=== PATIENT | male | born 1975 | race Caucasian/White ===

== ENCOUNTER → 2023-10-08 13:59 | Outpatient (REF) | payer OTHER, SELFPAY | LOC: HWRAD 13:59 | PROVIDERS: ATTENDING PHYSICIAN Family Medicine | DX: N20.0 Calculus of kidney (principal) | CPT/HCPCS: 74176 ==

== ENCOUNTER → 2023-10-28 09:25 | Outpatient (REF) | payer OTHER, SELFPAY | LOC: HWRAD 09:25 | PROVIDERS: ATTENDING PHYSICIAN Surgery; FAMILY PHYSICIAN Family Medicine | DX: N28.1 Cyst of kidney, acquired (principal) | CPT/HCPCS: 74170; Q9967 ==

== ENCOUNTER 2024-05-06 15:52 | Inpatient (IN) | payer OTHER, SELFPAY ==
[2024-05-06 08:49] VITALS: BP 103/74
[2024-05-06] MEDS: PROTONIX IV 80 MG IV (11:16)
[2024-05-06] MEDS: NSS 1000 IV (11:16)
[2024-05-06 11:32] LABS: % Basophils 0.3 % (0-2); % Eosinophils 1.3 % (0-6); % Immature Granulocytes 0.3 % (0-0.5); % Monocytes 6.5 % (1.7-9.3); % Neutrophils 77.6 % (42.2-75.2); Absolute Eosinophils 0.2 10^3/uL (0-0.7); Absolute Lymphocytes 1.6 10^3/uL (1.2-3.4); Absolute Monocytes 0.8 10^3/uL (0.1-0.6); Hematocrit 40.3 % (39.0-52.0); Hemoglobin 13.7 g/dL (13.0-18.0); Mean Corpuscular Hgb 31.6 pg (27.0-31.0); Mean Corpuscular Volume 92.9 fL (80.0-94.0); Mean Platelet Volume 10.4 fL (7.4-10.4); Nucleated Red Blood Cells % 0 % (-); Platelet Count 165 10^3/uL (130-400); Red Blood Cell Count 4.34 10^6/uL (4.70-6.10); Red Cell Dist. Width 12.5 % (11.5-14.5); White Blood Cell Count 11.6 10^3/uL (4.8-10.8)
[2024-05-06 11:45] LABS: ALT (SGPT) 26 U/L (0-50); AST (SGOT) 23 U/L (17-59); Albumin 4.1 g/dl (3.5-5.0); Alkaline Phosphatase 49 U/L (38-126); Blood Urea Nitrogen 11 mg/dl (9-20); Calcium 9.7 mg/dl (8.4-10.2); Carbon Dioxide 28 mmol/L (22-30); Chloride 103 mmol/L (98-107); Glucose 93 mg/dl (70-99); Potassium 4.2 mmol/L (3.5-5.1); Sodium 136 mmol/L (135-145); Total Bilirubin 0.7 mg/dl (0.2-1.3); Total Protein 7.3 g/dl (6.3-8.2); eGFR > 60.00
[2024-05-06] MEDS: DILAUDID 0.5 MG IV (12:53)
--- NOTE | 2024-05-06 12:58 | ED.GENMED ---
History of Present Illness
General
Chief Complaint: Rectal Bleeding
Source: patient and spouse
Exam Limitations: none
Time Seen by Provider: 05/06/24 10:44
Nursing documentation reviewed up to this point in time: agreed with
History of Present Illness
History of Present Illness:
48-year-old male presenting to the emergency department today with concerns of rectal bleeding described as bright red as well as mixture of dark stool as well over the past 10 days worsening over the past day felt [id number] to his hands and
feet today as well. Has a history of polyps on colonoscopy but denies any significant previous symptoms that were similar. Does not take any blood thinners.
Review of Systems
Review of Systems
Allergies reviewed?: Yes
All Other Systems: ROS reviewed and negative except as documented in HPI and ROS
Phy Exam
Physical Exam
Physical Exam:
GENERAL: Alert , in no apparent distress
EYE: pupils equal and reactive
NECK: Supple, no significant adenopathy.
ENT: o/p clr, mmm.
CARDIAC: Regular rate and rhythm .
LUNGS: Clear breath sounds bilaterally, no acute respiratory distress, no wheezes/rales/rhonchi
ABDOMEN: Left flank pain to palpation otherwise soft benign abdomen. Rectal examination with dark brown to black stool as well as red
NEUROLOGICAL: Alert and oriented, no focal neuro deficits
SKIN: Warm and dry, skin intact.
MUSCULOSKELETAL: No edema, well perfused.
PSYCH: Normal and appropriate interaction.
Course
Orders/Labs/Results
Orders:
Orders
05/06/24 10:54
CT Abd/Pel (IV only)-DH only Urgent
Comment:
Reason For Exam: left flank pain
Pantoprazole [Protonix IV] 80 mg IV NOW STA
05/06/24 10:55
0.9% Sodium Chloride 1000 ml [Nss] 1,000 ml IV BOLUS
05/06/24 11:24
Type+Screen Urgent
Complete Blood Count/With Diff Urgent
Comprehensive Metabolic Panel Urgent
05/06/24 12:29
ABO2 Urgent
BBK Wristband Number:
Associate notified that ABO2 has been ordered: [id number]
Date: 05/06/24
Time: 11:33
Potato Chip Frier ID: [id number]
05/06/24 12:34
HYDROmorphone [Dilaudid] 0.5 mg IV NOW STA
Abnormal Lab Results
05/06/24
11:24
WBC 11.6 H 10^3/uL
(4.8-10.8)
RBC 4.34 L 10^6/uL
(4.70-6.10)
MCH 31.6 H pg
(27.0-31.0)
Absolute Neuts (auto) 9.0 H 10^3/uL
(1.4-6.5)
Absolute Monos (auto) 0.8 H 10^3/uL
(0.1-0.6)
Neutrophils % 77.6 H %
(42.2-75.2)
Lymphocytes % 14.0 L %
(20.5-51.1)
05/06/24 11:24
05/06/24 11:24
Vital Signs
Initial and Last Documented VS:
Initial Vital Signs
Temp Pulse Resp BP Pulse Ox
98.4 F 84 16 /74 98
05/06/24 08:49 05/06/24 08:49 05/06/24 08:49 05/06/24 08:49 05/06/24 08:49
Last Documented Vital Signs
Temp Pulse Resp BP Pulse Ox
98.4 F 84 16 103/74 98
05/06/24 08:49 05/06/24 08:49 05/06/24 08:49 05/06/24 08:49 05/06/24 08:49
MDM/Problems Addressed
MDM/Problems Addressed:
48-year-old male presenting to the emergency department today with concerns of bleeding. Also has discomfort to the left flank area. Vital signs normal on arrival hemoglobin of 13.7. No old numbers CT scan here without emergent findings. Patient
claims have some ongoing bleeding here. Concerning moderate amount described as well as ongoing bleeding plan to admit for monitoring overnight.
*Critical Care Note
Total Time (30-74mins, 75-104mins- exclusive of procedures): Not Applicable
ED Attending Note
-
Portions of this chart may have been created with voice recognition software.� Occasional wrong word or��sound alike� substitutions may have occurred due to the inherent limitations of voice recognition software.
Discharge Plan
Departure
Patient Disposition: Admit
Date of Disposition: 05/06/24
Time of Disposition: 13:58
Admit to: Med/Surg
Admit to doctor: Lizethy
Presentation/result/management discussed w/ accepting MD/DO: Hospitalist
Patient with high blood pressure during this ER visit?: No
Condition: Good
Covid-19: Not Applicable
Discharge Problem:
Acute GI bleeding
Prescriptions:
No Action
ibuprofen [Motrin] 400 mg Tablet
400 mg PO Q6HPRN PRN (Reason: mild pain)
Referrals:
Feliciano Treviño DO [Family Provider] -
Interventions
Interventions:
*Risk Screen - Suicide Last Done: 05/06/24 08:54
*Neglect/Abuse Screening Last Done: 05/06/24 08:54
*ED COVID-19 Vaccine History Last Done: 05/06/24 08:54
EF-Wrujyx-Cqkbschwjo Assessment Last Done: 05/06/24 11:45
ED- Cardiac Assessment Last Done: 05/06/24 11:45
ED- Pulmonary Assessment Last Done: 05/06/24 11:45
Discharge Date and Time
Print Language: UKRAINIAN
--- NOTE | 2024-05-06 14:02 | HPS.HSE ---
Family Physician
-
Family Physician: Feliciano Treviño
Chief Complaint
-
rectal bleeding
History of Present Illness
Patient is a 48-year-old male with past medical history significant for polyps with colonoscopy, and bowel resection x2 who presented to [facility] ED for evaluation of rectal bright red blood today x3. Patient reports first episode of
bright red blood was on 04/25/2024 and since then he has had approximately 3-4 episodes of bright red blood and consistent dark stools. He reports significant history starting in 1994 where he had a appendectomy and ended up with adhesions causing a
bowel perforation. Patient had bowel resection and approximately 1 year after resection he had a second episode of adhesions with bowel perforation requiring a second resection. He denies any issues since. Has followed with GI and last colonoscopy
at [facility] was in 2021 where polyps were removed and recommendations for next colonoscopy to be in 5 years. He associates today's episode with pain the back left flank, does have recent history of kidney stone, patient took ibuprofen for
discomfort at home. Patient denies any dizziness, fever, chills, cough, shortness of breath, chest pain, nausea, vomiting, constipation, diarrhea or urinary symptoms.
Medical History
Past Medical History
Past Medical History: Reports Other
Additional Past Medical History:
colon polyps
Past Surgical History: Reports Other
Additional Past Surgical History:
colonoscopy
appendectomy
bowel resection x2 ([id number])
hernia repair
left knee lateral release
Social History
Tobacco: Former Smoker (quit 2010, has approximately 20 pack year history )
Alcohol: None
Drug: Marijuana (smokes occasionally )
Personal:
Living: With Family
Employment: Employed (self employed )
Family History
Family History: Other (Mother: Crohn's disease, HTN; Father: HTN, CAD, mesothelioma )
Allergies / Home Medications
Allergies reflects when Allergies were last updated in [facility].
Home Medications with original date entered in [facility]
Allergy/Medication List:
Allergies
Allergy/AdvReac Type Severity Reaction Status Date / Time
diphenhydramine AdvReac Mild Nausea Verified 05/06/24 08:52
[From Benadryl]
Home Medications
ibuprofen 400 mg tablet 400 mg PO Q6HPRN PRN mild pain 05/06/24
Review of Systems
-
History Source: Patient
Constitutional: Reports No Symptoms
EENT: Reports No Symptoms
Respiratory: Reports No Symptoms
Cardiac: Reports No Symptoms
Abdomen/GI: Reports Abdominal Pain (left flank, left back pain ), Bloody Stools and Black Stools
: Reports No Symptoms
Musculoskeletal: Reports No Symptoms
Skin: Reports No Symptoms
Neurological: Reports No Symptoms
Endocrine: Reports No Symptoms
Hematologic/Lymphatic: Reports No Symptoms
Psych: Reports No Symptoms
Physical Exam
Vital Signs
Vital Signs
Temp Pulse Resp BP Pulse Ox
98.4 F 84 16 103/74 98
05/06/24 08:49 05/06/24 08:49 05/06/24 08:49 05/06/24 08:49 05/06/24 08:49
Physical Exam
General: Well Developed, Well Nourished, No Apparent Distress, Comfortable and Conversant
HEENT: NormoCephalic, Moist mucous membranes, Atraumatic, [place] Conjunctivae, Nose Appears Normal and Ears Appear Normal
Respiratory: Clear and Non Labored Respirations
Cardiac: S1/S2 and Regular Rhythm; No Murmur, Rub or Gallop
Breast: Deferred by me
GI: Soft, Non Tender, Non Distended and Normal Bowel Sounds; No Organomegaly
Rectal: Hem Positive and Maroon Stools
Genito-urinary: Deferred by me
Musculoskeletal: No Clubbing, No Cyanosis and No Edema
Skin: Warm and IV/Catheter Site; No Rash
Neuro: Awake, Alert, AO x 3 and Nonfocal/grossly intact
Psych: Calm and Intact Judgment/Insight
Laboratory Results
-
05/06/24 11:24
05/06/24 11:24
Laboratory Results
Total Bilirubin 0.7 mg/dl (0.2-1.3) 05/06/24 11:24
AST 23 U/L (17-59) 05/06/24 11:24
ALT 26 U/L (0-50) 05/06/24 11:24
Alkaline Phosphatase 49 U/L (38-126) 05/06/24 11:24
Data Reviewed
-
CT Scan: Report Reviewed by me (Abd/pel: Small simple hepatic cyst as well as four additional subcentimeter low-attenuation hepatic lesions too small to characterize. Small simple bilateral renal cysts. Predominant asymmetric renal excretion. No
findings to suggest obstructive uropathy bilaterally. Limited evaluation of intestin)
Lab Data: Labs Reviewed by me
Impression/Plan
-
IMPRESSION/PLAN:
#GI bleed
Hx bowel resection x2 ([id number])
Hx polyps with colonoscopy (last 2021)
Hgb 13.7/Hct 40.3
Abd/Pelvis CT: Small simple hepatic cyst as well as four additional subcentimeter low-attenuation hepatic lesions too small to characterize.
Small simple bilateral renal cysts. Predominant asymmetric renal excretion. No findings to suggest obstructive uropathy bilaterally.
Limited evaluation of intestinal tract without oral contrast, without intestinal obstruction or free air.
Prior appendectomy.
Blood consent obtained and scanned in chart
- Admit to telemetry
- Consult GI
- monitor H/H
- Protonix IV BID
- IVF (LR @ 75cc/hr)
Code status: full code
DVT prophylaxis: SCDs
--- NOTE | 2024-05-06 15:49 | CON.GI ---
Addendum entered and electronically signed by Thanh Green MD 05/06/24 17:04:
The patient was seen and examined by me independently in collaboration with the nurse practitioner.
Past medical history/social history/medications/allergies/family history reviewed.
Lab data and imaging data reviewed.
48-year-old male past medical history of multiple bowel surgeries from adhesions and perforation after appendectomy presenting with rectal bleeding. Initially had 2 episodes of blood mixed with stool and April 25, additional 1 last week. This
morning he had 3 episodes of blood mixed with clots with no stool which brought him to the ER. He denies abdominal pain, nausea, fever, sick contacts, antibiotics, recent travel. His stools are always on the softer side due to his multiple
surgeries. He is up-to-date with his colonoscopy last being in 2021 and I also reviewed these pictures. In the ER he had a CT scan which was normal except for cysts and his hemoglobin here is 13.7. He does have a family history both of Crohn's
disease and colon cancer.
Likely diverticular vs hemorrhoids.
Trend Hb.
If acute bleed recommend CTA vs nuc med.
Will need cscope inpatient vs oupatient pending clinical status. D/w pt agreeable.
Clears for now.
Original Note:
Consultation
-
Date/Time Consultation Requested: 05/06/24 1500
Date/Time Consultation Performed: 05/06/24 1530
Requesting Provider: FRANCA Arnold
Performing Provider: Dr. Green/FRANCA Galarza
Reason for Consultation: rectal bleeding
Medical History
Chief Complaint / HPI
Chief Complaint: rectal bleeding
History of Present Illness:
48-year-old male with past medical history of Lyme's disease, colon polyps (), appendectomy(1994) bowel obstruction secondary to adhesions/bowel perforation with subsequent bowel resections x 2 (1995 &1996), kidney stones, recent
episodes of syncope which led him to his PCP and to obtain Holter monitor testing and lab work who presents to emergency room with rectal bleeding. The patient denies any medications at home. He states he is not a 'pill person'. There is reports
from emergency room that he was taking ibuprofen however he denies this to me. He states he is a reformed smoker. He does not drink any alcohol. He states that on April 25 he had an episode of bright red blood in the toilet. He states his
bowel habits are usually loose 2-3 a day that are usually brown. He states that since his bowel resection he usually has 2-3 loose bowel movements daily. Since that time his bowel movements have been normal for him. He has seen occasional trace
of blood. This morning he states he woke up and had 3 episodes of dark blood with clots which brought him to the emergency room. Otherwise the patient denies any fevers, chills, nausea, vomiting, melena, hematochezia, dysphagia or odynophagia. No
early satiety or unintentional weight loss. At the present time he denies any chest pain, shortness of breath near syncope. I was able to review his labs from his PCP performed on 04/15/24 this was WBC 6.2, hemoglobin 13.7, hematocrit 41.7,
platelets 189, sodium 141, potassium 4.3, BUN 18, creatinine 0.72, glucose 89, total bilirubin 0.4, AST 15, ALT 25, alk phos 42. Lab work today shows elevated WBC 11.6, hemoglobin exactly the same at 13.7, hematocrit 40.3, platelets 165, sodium 136,
potassium 4.2, BUN 11, creatinine 0.8, glucose 93, total bilirubin 0.7, AST 23, ALT 26, alk phos 49. Vital signs stable patient afebrile at 98.4, pulse 84, BP 103/74, O2 sat 98% on room air. I was able to review his colonoscopy performed by
K[facility] at [facility] (10/01/2021) pictures were available as well as typed letter to patient stating that polyp removed was hyperplastic. And he had diverticulosis. Recommended repeat colonoscopy in 5 to 10 years. I
performed a rectal exam on the patient myself which yielded small amount of light brown stool which was OB positive.
Past Medical History
Past Medical History: Other (Lyme disease, colon polyps (hyperplastic), bowel perforation, kidney stones, syncope)
Past Surgical History: Bowel Resection (Bowel resection x 2 (1995, 1996), appendectomy, hernia repair x 2, left knee surgery)
Social History
Tobacco: Former Smoker
Alcohol: None
Drug: None
Personal:
Living: With Family
Employment: Employed
Family History
Family History: Other (Mother with history of Crohn's disease)
Allergies / Home Medications
Allergy/AdvReac Type Severity Reaction Status Date / Time
diphenhydramine AdvReac Mild Nausea Verified 05/06/24 08:52
[From Benadryl]
�Medication �Instructions �Recorded
ibuprofen 400 mg tablet 400 mg PO Q6HPRN PRN mild pain 05/06/24
Review of Systems
-
All other systems: A 12 pt ROS was Negative except as stated above in HPI
Vital Signs
Temp Pulse Resp BP Pulse Ox
98.4 F 84 16 103/74 98
05/06/24 08:49 05/06/24 08:49 05/06/24 08:49 05/06/24 08:49 05/06/24 08:49
Physical Exam
Exam
General: No Apparent Distress
HEENT: Anicteric
Respiratory: Clear
Cardiac: Regular Rhythm
GI: Soft, Non Tender, Non Distended and Normal Bowel Sounds
Rectal: Hem Positive (Light brown stool rectal vault, anal papillae hypertrophied palpable within anal verge (confirmed with colonoscopy pictures on retroflexion), stool positive for occult blood)
Musculoskeletal: No Edema
Skin: Warm and Dry
Neuro: AO x 3
Psych: Calm
Results
WBC 11.6 10^3/uL (4.8-10.8) H 05/06/24 11:24
Hgb 13.7 g/dL (13.0-18.0) 05/06/24 11:24
Hct 40.3 % (39.0-52.0) 05/06/24 11:24
MCV 92.9 fL (80.0-94.0) 05/06/24 11:24
Plt Count 165 10^3/uL (130-400) 05/06/24 11:24
Absolute Neuts (auto) 9.0 10^3/uL (1.4-6.5) H 05/06/24 11:24
Sodium 136 mmol/L (135-145) 05/06/24 11:24
Potassium 4.2 mmol/L (3.5-5.1) 05/06/24 11:24
Chloride 103 mmol/L (98-107) 05/06/24 11:24
Carbon Dioxide 28 mmol/L (22-30) 05/06/24 11:24
BUN 11 mg/dl (9-20) 05/06/24 11:24
Creatinine 0.8 mg/dL (0.7-1.3) 05/06/24 11:24
Calcium 9.7 mg/dl (8.4-10.2) 05/06/24 11:24
Total Bilirubin 0.7 mg/dl (0.2-1.3) 05/06/24 11:24
AST 23 U/L (17-59) 05/06/24 11:24
ALT 26 U/L (0-50) 05/06/24 11:24
Alkaline Phosphatase 49 U/L (38-126) 05/06/24 11:24
Diagnostic Image Results:
CT abdomen and pelvis with IV contrast only:
IMPRESSION:
Small simple hepatic cyst as well as four additional subcentimeter low-attenuation hepatic lesions too small to characterize.
Small simple bilateral renal cysts. Predominant asymmetric renal excretion. No findings to suggest obstructive uropathy bilaterally.
Limited evaluation of intestinal tract without oral contrast, without intestinal obstruction or free air.
Prior appendectomy.
Prior GI Procedures:
EGD: Never
Colonoscopy: 10/01/2021 (Dr. Moe at [facility]) diverticulosis, hyperplastic polyp. Recommend repeat in 5-10 years. Pictures available to review however no official report. Letter addressed to patient with
recommendations. And polyp pathology stating hyperplastic.
Assessment / Plan
-
48-year-old male with past medical history of Lyme's disease, colon polyps (hyperplastic), appendectomy(1994) bowel obstruction secondary to adhesions/bowel perforation with subsequent bowel resections x 2 (1995 &1996), kidney stones, recent
episodes of syncope which led him to his PCP and to obtain Holter monitor testing and lab work who presents to emergency room with rectal bleeding. The patient denies any medications at home. He states he is not a 'pill person'. There is reports
from emergency room that he was taking ibuprofen however he denies this to me. Hemoglobin is currently 13.7 the same as when it was checked on 04/15/2024 as an outpatient. Patient has had no further signs of bleeding since arrival. Rectal exam
performed by myself with light brown stool in rectal vault, OB positive when checked. No abdominal pain. BUN normal, patient without any GI complaints, dyspepsia or GERD. Prior colonoscopy with diverticulosis.
Impression:
Rectal bleeding
-possibly diverticular, hemorrhoidal less likely ischemic, AVM or UGIB
Plan:
-Clear liquid diet, no red
-If with active GI bleeding obtain nuc med bleeding scan as patient had IV contrast today
-If greater than 24 hours from today then could consider repeat CT abdomen and pelvis with angio
-Trend hemoglobin
-Okay to continue Protonix
-Last colonoscopy 2021, repeat recommended in 5 years. Will discuss possible repeat colonoscopy timing as patient would like to continue his GI care here as he moved.
-Further recommendations to be forthcoming.
-
-
Thank you for consultation and allowing me to participate in the patient's care. Please call the manager neonatal GI physician during the after hours with any questions or concerns.
[2024-05-06 16:36] VITALS: BP 137/85
--- NOTE | 2024-05-06 17:30 | W.PN.UPDATE ---
Update Note
Progress Note Update
This note serves as an addendum to the H&P by FRANCA Arnold, on 05/06/24.
History of Presenting Illness
48-year-old male with past medical history significant for kidney stone (followed by urologist Dr. Fritz outpatient), polyps with colonoscopy, and bowel resection x2, bowel perforation with intrabdominal adhesions needing surgery in the ,
presented to [facility] ED for evaluation of rectal bright red blood today x3. Patient reports first episode of bright red blood was on 04/25/2024 and since then he has had approximately 3-4 episodes of bright red blood and dark stools. He
reports significant history starting in 1994 where he had a appendectomy and ended up with adhesions causing a bowel perforation. Patient had bowel resection and approximately 1 year after resection he had a second episode of adhesions with bowel
perforation requiring a second resection. He denies any issues since. Has followed with GI and last colonoscopy at [facility] was in 2021 where polyps were removed and recommendations for next colonoscopy to be in 5 years. He associates today's
episode with pain the back left flank recently, does have recent history of kidney stone, patient took ibuprofen for discomfort at home. Patient denied any other symptoms and is relatively healthy.
Vital Signs noted and stable/okay
Physical Exam
General: Not in acute distress
HEENT: Normocephalic, Moist mucous membranes, Atraumatic
Respiratory: Clear and Non Labored Respirations Bilaterally
Cardiac: S1/S2 and Regular Rhythm
GI: Soft, Non Tender, Non Distended and Normal Bowel Sounds
Musculoskeletal: No Cyanosis and No Edema
Skin: Warm. Dry.
Neuro: Awake, Alert, AO x 3 and Nonfocal/grossly intact
Psych: Calm and Intact Judgment/Insight
Assessment/Plan
#Presentation with BRBPR and Melena
Hx bowel resection x2 ([id number])
Hx polyps with colonoscopy (last 2021)
Hgb 13.7/Hct 40.3
Abd/Pelvis CT: Small simple hepatic cyst as well as four additional subcentimeter low-attenuation hepatic lesions too small to characterize.
Small simple bilateral renal cysts. Predominant asymmetric renal excretion. No findings to suggest obstructive uropathy bilaterally.
Limited evaluation of intestinal tract without oral contrast, without intestinal obstruction or free air.
Prior appendectomy.
Blood consent obtained and scanned in chart
- Recheck Hgb this evening
- Monitor on telemetry
- Consult GI
- monitor H/H
- Protonix IV BID
- IVF (LR @ 75cc/hr)
- Avoid NSAIDs
#History of Kidney Stone(s)
-Followed by Dr. Fritz outpatient
Code status: full code
DVT prophylaxis: SCDs
[2024-05-06 18:08] VITALS: BP 136/75; BMI 24.1
[2024-05-06] MEDS: LR 1000 IV (18:29)
[2024-05-06 19:00] VITALS: BP 137/82
--- NOTE | 2024-05-06 19:15 | PTCARENOTE ---
Pt received from day shift RN. Pt karli, AAOX3, and VSS. Pt complains of nausea at this time. WINDOWS [employer] ADMINISTRATOR notified and pt given Zofran - see MAR. Pt bed in lowest position and call james within reach. Pt educated on importance of call james usage. Pt relays
understanding. Will continue with current plan of care.
[2024-05-06] MEDS: ZOFRAN 4 MG IV (19:49)
[2024-05-06 20:20] LABS: Hematocrit 37.2 % (39.0-52.0); Hemoglobin 12.8 g/dL (13.0-18.0)
[2024-05-06 23:30] VITALS: BP 118/65; BP 125/94; BP 126/72; PULSE 55; PULSE 67; PULSE 76
[2024-05-07 03:24] VITALS: BP 111/69; BP 114/77; BP 121/72; PULSE 56; PULSE 71; PULSE 72
[2024-05-07 06:27] LABS: Hematocrit 39.1 % (39.0-52.0); Hemoglobin 13.2 g/dL (13.0-18.0); Mean Corp Hgb Conc. 33.8 g/dL (33.0-37.0); Mean Corpuscular Hgb 31.4 pg (27.0-31.0); Mean Corpuscular Volume 93.1 fL (80.0-94.0); Mean Platelet Volume 10.9 fL (7.4-10.4); Platelet Count 156 10^3/uL (130-400); Red Cell Dist. Width 12.5 % (11.5-14.5); White Blood Cell Count 5.8 10^3/uL (4.8-10.8)
[2024-05-07] MEDS: LR 1000 IV (07:07)
[2024-05-07 07:11] LABS: Blood Urea Nitrogen 9 mg/dl (9-20); Calcium 9.4 mg/dl (8.4-10.2); Carbon Dioxide 27 mmol/L (22-30); Chloride 102 mmol/L (98-107); Estimated Creatinine Clearance > 125 ml/min; Glucose 94 mg/dl (70-99); Potassium 4.5 mmol/L (3.5-5.1); Sodium 136 mmol/L (135-145); eGFR > 60.00
[2024-05-07 07:51] VITALS: BP 122/75
[2024-05-07] MEDS: NSS (PRESERVATIVE FREE) 10 ML IV (08:01)
[2024-05-07] MEDS: PROTONIX IV 40 MG IV (08:01)
--- NOTE | 2024-05-07 08:56 | W.PN.GI.CBS2 ---
Today's Communication / Plan
-
as per plan
Assessment / Plan
-
48-year-old male with past medical history of Lyme's disease, colon polyps (), appendectomy(1994) bowel obstruction secondary to adhesions/bowel perforation with subsequent bowel resections x 2 (1995 &1996), kidney stones, recent
episodes of syncope which led him to his PCP and to obtain Holter monitor testing and lab work who presents to emergency room with rectal bleeding. The patient denies any medications at home. He states he is not a 'pill person'. There is reports
from emergency room that he was taking ibuprofen however he denies this to me. Hemoglobin is currently 13.7 the same as when it was checked on 04/15/2024 as an outpatient. Patient has had no further signs of bleeding since arrival. Rectal exam
performed by myself with light brown stool in rectal vault, OB positive when checked. No abdominal pain. BUN normal, patient without any GI complaints, dyspepsia or GERD. Prior colonoscopy with diverticulosis.
Impression:
Rectal bleeding
-likely hemorrhoidal vs diverticular
-Resolved
-Hgb stable
Plan:
-Low residue diet
-Colonoscopy scheduled for 05/10/24. GI suite will call patient with time today. Patient aware
-All instructions given to patient with Plenvu prep.
-Ok to DC from GI perspective, discussed with IM Attending.
-GI signing off.
Subjective
Subjective
Date of Service: May 07, 2024
Evidence or signs of bleeding. Hemoglobin stable 13.2. Outpatient colonoscopy arranged for Friday. Denies any pain. Tolerating clear liquid diet. Given directions for colonoscopy Friday as well as prep for procedure.
Objective
Data Reviewed
Laboratory Data:
Laboratory Results
05/07/24 05:24
05/07/24 05:24
Laboratory Results
Total Bilirubin 0.7 mg/dl (0.2-1.3) 05/06/24 11:24
AST 23 U/L (17-59) 05/06/24 11:24
ALT 26 U/L (0-50) 05/06/24 11:24
Alkaline Phosphatase 49 U/L (38-126) 05/06/24 11:24
Vital Signs and I&O:
Vital Signs
Temp Pulse Resp BP Pulse Ox
98.7 F 63 18 122/75 95
05/07/24 07:51 05/07/24 07:51 05/07/24 07:51 05/07/24 07:51 05/07/24 07:51
I&O
05/06/24 05/07/24 05/08/24
06:59 06:59 06:59
Intake Total 1380 / 1380
Balance 1380 / 1380
Physical Exam
Physical Exam
HEENT: Anicteric
Cardiology: Normal Sinus Rhythm
Pulmonary: Clear
GI: Soft, Non Distended, Non Tender and Normal Bowel Sounds
Extremities: No Edema
Neuro: Non Focal
--- NOTE | 2024-05-07 09:08 | W.PN.HOSP.TC ---
Today's Communication/Plan
-
Discharge today
Assessment / Plan
Assessment / Plan
Physical Exam
General: Not in acute distress
HEENT: Normocephalic, Moist mucous membranes, Atraumatic
Respiratory: Clear and Non Labored Respirations Bilaterally
Cardiac: S1/S2 and Regular Rhythm
GI: Soft, Non Tender, Non Distended and Normal Bowel Sounds
Musculoskeletal: No Cyanosis and No Edema
Skin: Warm. Dry.
Neuro: Awake, Alert, AO x 3 and Nonfocal/grossly intact
Psych: Calm and Intact Judgment/Insight
Assessment/Plan
#Presentation with BRBPR and Melena
Hx bowel resection x2 ([id number])
Hx polyps with colonoscopy (last 2021)
Hgb 13.7/Hct 40.3
Abd/Pelvis CT: Small simple hepatic cyst as well as four additional subcentimeter low-attenuation hepatic lesions too small to characterize.
Small simple bilateral renal cysts. Predominant asymmetric renal excretion. No findings to suggest obstructive uropathy bilaterally.
Limited evaluation of intestinal tract without oral contrast, without intestinal obstruction or free air.
Prior appendectomy.
- Hgb stable
- Consulted GI: Low residue diet. Colonoscopy scheduled for 05/10/24. GI suite will call patient with time today. Patient aware
- Communicated with GI today who mentioned that patient does not need Protonix on discharge as patient had light brown stool on rectal exam and his pictures of stool did not suggest melena as per GI
- Avoid NSAIDs
#History of Kidney Stone(s)
-Followed by Dr. Fritz outpatient
Code status: full code
DVT prophylaxis: SCDs
More than 30 minutes spent in discharge including
Final examination of the patient
Summarizing hospital stay
Instructions for continuing care to all relevant caregivers
Preparation of discharge records, prescriptions, and referral forms
Total time spent (in minutes): 37
Anticipated Discharge: Today
Subjective/Interval History
-
Date of Service: May 07, 2024
Patient was seen and examined. He reported feeling good, now bloody bowel movement overnight, he prefers to go home and do tests outpatient.
Objective Data
-
Labs:
Laboratory Results
05/07/24
05:24
WBC 5.8
Hgb 13.2
Hct 39.1
Plt Count 156
Sodium 136
Potassium 4.5
Chloride 102
Carbon Dioxide 27
BUN 9
Creatinine 0.8
Glucose 94
Calcium 9.4
Vital Signs:
Vital Signs
Temp Pulse Resp BP Pulse Ox
98.7 F 63 18 122/75 95
05/07/24 07:51 05/07/24 07:51 05/07/24 07:51 05/07/24 07:51 05/07/24 07:51
I&O
05/06/24 05/07/24 05/08/24
06:59 06:59 06:59
Intake Total 1380 / 1380
Balance 1380 / 1380
[2024-05-07 11:12] VITALS: BP 132/72
--- NOTE | 2024-05-07 13:24 | W.DCSUMMARY ---
Discharge Summary
Discharge Data
Date of Admission: 05/06/24
Date of Discharge: 05/07/24
Total time spent discharging patient (in min): 37
-
Pending Results: No
Hospital Course
48-year-old male with past medical history significant for kidney stone (followed by urologist Dr. Fritz outpatient), polyps with colonoscopy, and bowel resection x2, bowel perforation with intrabdominal adhesions needing surgery in the ,
presented to [facility] ED for evaluation of a few episodes rectal bright red blood with some dark stools over a period of 2 weeks or so. Patient was started on Protonix and gastroenterology was consulted. Patient's hemoglobin and vital
signs remained stable, and he was feeling fine going into the next day. Gastroenterology recommended outpatient colonoscopy in a few days, the appointment for which was set up. He was placed on low residue diet and stable for discharge. Since he did
not have true melena (as discussed with gastroenterology), patient did not need Protonix at the time of discharge.
Discharge Plan
-
Patient Disposition: Home (Routine Discharge)
Discharge Diagnosis/Procedures: Presentation with bloody stools
History of Kidney Stone(s)
CT Abdomen/Pelvis (as per radiologist's report):
'Small simple hepatic cyst as well as four additional subcentimeter low-attenuation hepatic lesions too small to characterize. Small simple bilateral renal cysts. Predominant asymmetric renal excretion. No findings to suggest obstructive uropathy
bilaterally. Limited evaluation of intestinal tract without oral contrast, without intestinal obstruction or free air. Prior appendectomy.'
Condition: Good
Diet: Low Residue
Additional Diets: clear liquid diet on 05/09/24
Activity: As tolerated
Others Tests: Colonoscopy 05/10/24, GI suite to call you today for time
Activity Restrictions/Additional Instructions:
Colonoscopy scheduled for 05/10/24. Gastroenterology suite will call patient with time. Patient aware
Referrals:
Feliciano Treviño, DO [Family Provider] - in less than 1 week
Prescriptions:
Discontinued
ibuprofen [Motrin] 400 mg Tablet
400 mg PO Q6HPRN PRN (Reason: mild pain)
Discharge Orders:
Discharge Patient (As Directed); Ordered 05/07/24
Ordered By: Shen Santana
Discharge Date and Time
Discharge Date/Time: 05/07/24 13:39
Print Language: ARGENTINE
== END 2024-05-07 13:39 | disposition home or self-care (01) | DRG 379 ==
LOC: 4 WEST ACU 15:52
PROVIDERS: Emergency Medicine; Nurse Practitioner Family; ADMITTING PHYSICIAN Hospitalist; CONSULT PHYSICIAN Internal Medicine Gastroenterology; EMERGENCY PHYSICIAN Emergency Medicine; FAMILY PHYSICIAN Family Medicine
DX: K92.1 Melena (principal); K76.89 Other specified diseases of liver; Z87.442 Personal history of urinary calculi; Z86.0100 Personal history of colon polyps, unspecified
CPT/HCPCS: 74177; 80048; 80053; 85014; 85018; 85025; 85027; 86850; 86900; 86901; 96361; 96374; 96375; 99285; Q9967

== ENCOUNTER 2024-05-10 14:22 | Day surgery (SDC) | payer OTHER, SELFPAY | END 2024-05-10 16:50 | disposition home or self-care (01) | LOC: GI 14:22 | PROVIDERS: ATTENDING PHYSICIAN Internal Medicine Gastroenterology | DX: K62.5 Hemorrhage of anus and rectum (principal); K57.30 Diverticulosis of large intestine without perforation or abscess without bleeding; K64.0 First degree hemorrhoids; K62.89 Other specified diseases of anus and rectum; K63.5 Polyp of colon | CPT/HCPCS: 45380; 88305 ==

== ENCOUNTER → 2024-10-19 06:21 | Outpatient (REF) | payer OTHER, SELFPAY ==
--- NOTE | 2024-10-20 07:25 | EEG.RPT ---
Electroencephalogram Report
Recording
Date of EE10/19/24
Type of EEG: Routine
Length of EEG recordin minutes
Done with Video Recording: Yes
Patient Status: Outpatient
Recording Conditions: Awake and Drowsy
Hyperventilation Performed: Yes
Photic Stimulation Performed: Yes
Report
LESS THAN 1 HOUR EEG INTERPRETATION:
Unremarkable EEG for age
CLINICAL CORRELATION:
A normal EEG does not rule out a diagnosis of epilepsy. If clinical suspicion for seizure persists, a prolonged recording may be warranted.
Clinical correlation is advised.
METHODS:
A 21 channel digitized electroencephalogram (EEG) was performed using the 10/20 international system of electrode placement and one-lead of ECG recorded. The [employer] quantitative EEG system was utilized.
ELECTROENCEPHALOGRAPHER IMPRESSION(S):
Quality of study
Good
Background
There was an unremarkable anterior-posterior voltage gradient of alpha frequency.
With eye opening the background activity changed to a low voltage mixture of frequencies.
There were no significant asymmetries of background activity noted.
Sleep
Drowsiness present
Hyperventilation
No activation
Photic Stimulation
Rare symmetric driving equally bilaterally
ECG
Normal sinus rhythm
== END ==
LOC: EEG 06:21
PROVIDERS: ATTENDING PHYSICIAN Physician Assistant Medical; FAMILY PHYSICIAN Family Medicine
DX: R55 Syncope and collapse (principal); R11.2 Nausea with vomiting, unspecified
CPT/HCPCS: 93880; 95816

== ENCOUNTER → 2024-10-19 09:45 | Outpatient (REF) | payer OTHER, SELFPAY | LOC: HWRAD 09:45 | PROVIDERS: ATTENDING PHYSICIAN Physician Assistant Medical; FAMILY PHYSICIAN Family Medicine | DX: R55 Syncope and collapse (principal); R11.2 Nausea with vomiting, unspecified | CPT/HCPCS: 71046 ==

== ENCOUNTER → 2024-12-17 20:21 | Outpatient (REF) | payer OTHER, SELFPAY | LOC: MRI 3T 20:21 | PROVIDERS: ATTENDING PHYSICIAN Physician Assistant Medical | DX: R55 Syncope and collapse (principal); R11.2 Nausea with vomiting, unspecified | CPT/HCPCS: 70553; A9575 ==